=== PATIENT | male | born 1940 | race Caucasian/White ===

== ENCOUNTER 2017-07-14 19:15 | Inpatient (IN) | payer MEDICARE, OTHER ==
--- NOTE | 2017-07-14 19:35 | EDM.PDOC ---
ED HPI GENERAL MEDICAL PROBLEM - General Chief Complaint: Respiratory Problem Stated Complaint: UNK CHEST COLD Time Seen by Provider: 07/14/17 19:35 Source of Information: Reports: Patient - History of Present Illness INITIAL COMMENTS - FREE TEXT/NARRATIVE: HISTORY AND PHYSICAL: History of present illness: [Patient presents with cough fever chills over the last week some shortness of breath no chest pain headache dizziness or palpitation no bowel or urine symptoms ] Review of systems: As per history of present illness and below otherwise all systems reviewed and negative. Past medical history: As per history of present illness and as reviewed below otherwise noncontributory. Surgical history: As per history of present illness and as reviewed below otherwise noncontributory. Social history: No reported history of drug or alcohol abuse. Family history: As per history of present illness and as reviewed below otherwise noncontributory. Physical exam: HEENT: Atraumatic, normocephalic, pupils reactive, negative for conjunctival pallor or scleral icterus, mucous membranes moist, throat clear, neck supple, nontender, trachea midline. LunDecreased breath sounds at the bases, breath sounds equal bilaterally, chest nontender. Heart: S1S2, regular, negative for clicks, rubs, or JVD. Abdomen: Soft, nondistended, nontender. Negative for masses or hepatosplenomegaly. Negative for costovertebral tenderness. Pelvis: Stable nontender. Genitourinary: Deferred. Rectal: Deferred. Extremities: Atraumatic, negative for cords or calf pain. Neurovascular unremarkable. Neuro: Awake, alert, oriented. Cranial nerves II through XII unremarkable. Cerebellum unremarkable. Motor and sensory unremarkable throughout. Exam nonfocal. Diagnostics: [CBC CMP UA troponin EKG Chest 1 view] Therapeutics: [ normal saline 1 25 mL per hour Rocephin 1 g IV Azithromycin 500 mg IV ] Impression: [Pneumonia Fever] Leukocytosis Definitive disposition and diagnosis as appropriate pending reevaluation and review of above. chest area Pain Score (Numeric/FACES): 1 - Related Data Allergies Allergy/AdvReac Type Severity Reaction Status Date / Time No Known Allergies Allergy Verified 07/14/17 19:29 Home Meds: Home Meds . [No Known Home Meds] 07/14/17 [History] ED ROS GENERAL - Review of Systems Review Of Systems: ROS reveals no pertinent complaints other than HPI. ED EXAM, GENERAL - Physical Exam Exam: See Below Course - Vital Signs Last Recorded V/S: Last Vital Signs Temp 99.9 F 07/14/17 19:30 Pulse 78 07/14/17 19:30 Resp 20 07/14/17 19:30 BP 166/90 H 07/14/17 19:30 Pulse Ox 93 L 07/14/17 19:30 - Orders/Labs/Meds Orders: Active Orders 24 hr Category Date Time Status EKG Documentation Completion [RC] STAT Care 07/14/17 19:33 Active RT Aerosol Therapy [RC] ASDIRECTED Care 07/14/17 20:12 Active Chest 1V Frontal [CR] Stat Exams 07/14/17 19:33 Taken CULTURE BLOOD [BC] Stat Lab 07/14/17 19:46 Received CULTURE BLOOD [BC] Stat Lab 07/14/17 19:53 Received INFLUENZA A+B AG SCREEN [RM] Stat Lab 07/14/17 19:45 Ordered UA W/MICROSCOPIC [URIN] Stat Lab 07/14/17 19:33 Ordered Azithromycin [Zithromax] 500 mg Med 07/14/17 20:11 Active Sodium Chloride 0.9% [Normal Saline] 250 ml IV ONETIME Sodium Chloride 0.9% [Normal Saline] 1,000 ml Med 07/14/17 20:15 Active IV STAT Blood Culture x2 Reflex Set [OM.PC] Stat Oth 07/14/17 19:33 Ordered Medication Orders Azithromycin 500 mg/ Sodium (Chloride) 250 mls @ 250 mls/hr IV ONETIME ONE Stop: 07/14/17 21:10 Sodium Chloride (Normal Saline) 1,000 mls @ 125 mls/hr IV STAT [facility] Labs: Laboratory Tests 07/14/17 07/14/17 07/14/17 Range/Units 19:46 19:46 19:46 WBC 14.62 H (4.0-11.0) K/uL RBC 4.39 L (4.50-5.90) M/uL Hgb 13.7 (13.0-17.0) g/dL Hct 40.2 (38.0-50.0) % MCV 91.6 (80.0-98.0) fL MCH 31.2 (27.0-32.0) pg MCHC 34.1 (31.0-37.0) g/dL RDW Std Deviation 46.5 (28.0-62.0) fl RDW Coeff of [place] 14 (11.0-15.0) % Plt Count 231 (150-400) K/uL MPV 9.70 (7.40-12.00) fL Neut % (Auto) 78.5 (48.0-80.0) % Lymph % (Auto) 11.0 L (16.0-40.0) % [place] % (Auto) 9.4 (0.0-15.0) % Eos % (Auto) 0.9 (0.0-7.0) % Baso % (Auto) 0.2 (0.0-1.5) % Neut # (Auto) 11.5 H (1.4-5.7) K/uL Lymph # (Auto) 1.6 (0.6-2.4) K/uL [place] # (Auto) 1.4 H (0.0-0.8) K/uL Eos # (Auto) 0.1 (0.0-0.7) K/uL Baso # (Auto) 0.0 (0.0-0.1) K/uL Nucleated RBC % 0.0 /100WBC Nucleated RBCs # 0 K/uL Sodium 139 (136-148) mmol/L Potassium 3.9 (3.5-5.1) mmol/L Chloride 104 (98-107) mmol/L Carbon Dioxide 25.8 (21.0-32.0) mmol/L BUN 17 (7.0-18.0) mg/dL Creatinine 1.0 (0.8-1.3) mg/dL Est Cr Clr Drug Dosing 54.27 mL/min Estimated GFR (MDRD) > 60.0 ml/min Glucose 140 H (74-106) mg/dL Calcium 8.9 (8.5-10.1) mg/dL Total Bilirubin 0.2 (0.2-1.0) mg/dL AST 17 (15-37) IU/L ALT 29 (14-63) IU/L Alkaline Phosphatase 77 (46-116) U/L Troponin I < 0.050 (0.000-0.056) ng/mL B-Natriuretic Peptide 80 (<100) PG/ML Total Protein 7.7 (6.4-8.2) g/dL Albumin 3.1 L (3.4-5.0) g/dL Globulin 4.6 H (2.0-3.5) g/dL Albumin/Globulin Ratio 0.7 L (1.3-2.8) Meds: Medications Generic Name Dose Route Start Last Admin Trade Name Jose De Jesus PRN Reason Stop Dose Admin Azithromycin 500 mg/ Sodium 250 mls @ 250 mls/hr 07/14/17 20:11 Chloride IV 07/14/17 21:10 ONETIME ONE Sodium Chloride 1,000 mls @ 125 mls/hr 07/14/17 20:15 Normal Saline IV STAT LOYDA Discontinued Medications Generic Name Dose Route Start Last Admin Trade Name Freq PRN Reason Stop Dose Admin Albuterol/Ipratropium 3 ml 07/14/17 20:12 07/14/17 20:17 Duoneb 3.0-0.5 Mg/3 Ml NEB 07/14/17 20:13 3 ml ONETIME ONE Administration Ceftriaxone Sodium 1,000 mg/ 4 mls @ 4 mls/sec 07/14/17 20:11 Lidocaine HCl IM 07/14/17 20:12 ONETIME ONE Departure - Departure Time of Disposition: 20:32 Disposition: Admitted As Inpatient 68 Condition: Fair Clinical Impression: Pneumonia - Discharge Information Referrals: PCP,None [Primary Care Provider] - Forms: ED Department Discharge - My Orders Last 24 Hours: My Active Orders 07/14/17 19:33 EKG Documentation Completion [RC] STAT Chest 1V Frontal [CR] Stat UA W/MICROSCOPIC [URIN] Stat Blood Culture x2 Reflex Set [OM.PC] Stat 07/14/17 19:45 INFLUENZA A+B AG SCREEN [RM] Stat 07/14/17 19:46 CULTURE BLOOD [BC] Stat 07/14/17 19:53 CULTURE BLOOD [BC] Stat 07/14/17 20:11 Azithromycin [Zithromax] 500 mg Sodium Chloride 0.9% [Normal Saline] 250 ml IV ONETIME 07/14/17 20:12 RT Aerosol Therapy [RC] ASDIRECTED 07/14/17 20:15 Sodium Chloride 0.9% [Normal Saline] 1,000 ml IV STAT - Assessment/Plan Last 24 Hours: My Active Orders 07/14/17 19:33 EKG Documentation Completion [RC] STAT Chest 1V Frontal [CR] Stat UA W/MICROSCOPIC [URIN] Stat Blood Culture x2 Reflex Set [OM.PC] Stat 07/14/17 19:45 INFLUENZA A+B AG SCREEN [RM] Stat 07/14/17 19:46 CULTURE BLOOD [BC] Stat 07/14/17 19:53 CULTURE BLOOD [BC] Stat 07/14/17 20:11 Azithromycin [Zithromax] 500 mg Sodium Chloride 0.9% [Normal Saline] 250 ml IV ONETIME 07/14/17 20:12 RT Aerosol Therapy [RC] ASDIRECTED 07/14/17 20:15 Sodium Chloride 0.9% [Normal Saline] 1,000 ml IV STAT
[2017-07-14] MEDS ORDERED: cefTRIAXone 1,000 MG in Lidocaine 1% 4 ML IM ONE (20:11)
[2017-07-14] MEDS ORDERED: Azithromycin 500 MG in Sodium Chloride 0.9% 250 ML IV ONE (20:11)
[2017-07-14] MEDS ORDERED: Albuterol/Ipratropium 3.0-0.5 MG/3 ML Neb Soln NEB ONE (20:12)
[2017-07-14 20:18] LABS: CHLORIDE,CL 104 mmol/L (98-107); SODIUM,NA 139 mmol/L (136-148)
[2017-07-14] MEDS ORDERED: cefTRIAXone 1 GM in Premix Bag 1 BAG IV ONE (20:42)
[2017-07-14] MEDS: Sodium Chloride 0.9% 1,000 ML IV SCH (21:35)
[2017-07-14] MEDS ORDERED: Morphine 10 MG/ML Syringe IVPUSH PRN (22:14)
[2017-07-14] MEDS ORDERED: Albuterol/Ipratropium 3.0-0.5 MG/3 ML Neb Soln NEB PRN (22:14)
[2017-07-14] MEDS ORDERED: Ondansetron 4 MG/2 ML SDV IVPUSH PRN (22:14)
[2017-07-14] MEDS ORDERED: Azithromycin 250 MG Tab PO ONE (22:26)
[2017-07-14] MEDS ORDERED: cefTRIAXone 1,000 MG in Sodium Chloride 0.9% 50 ML IV SCH (22:30)
[2017-07-14] MEDS: Acetaminophen 325 MG Tab PO PRN (23:14)
[2017-07-15] MEDS: Acetaminophen 325 MG Tab PO PRN (04:48)
[2017-07-15] MEDS ORDERED: Azithromycin 500 MG in Sodium Chloride 0.9% 250 ML IV SCH ×5 (05:00→21:30)
[2017-07-15 06:25] LABS: CHLORIDE,CL 105 mmol/L (98-107); SODIUM,NA 140 mmol/L (136-148)
[2017-07-15] MEDS: Sodium Chloride 0.9% 1,000 ML IV SCH (07:18)
[2017-07-15] MEDS ORDERED: cefTRIAXone 1,000 MG in Sodium Chloride 0.9% 50 ML IV SCH ×5 (09:00→23:00)
[2017-07-15] MEDS ORDERED: Acetaminophen/HYDROcodone 325-10 MG Tab PO PRN (10:29)
[2017-07-15] MEDS ORDERED: Albuterol/Ipratropium 3.0-0.5 MG/3 ML Neb Soln NEB PRN (10:31)
[2017-07-15] MEDS: Fluticasone/Salmeterol 250-50 MCG Inhalation Powder 14/Diskus INH SCH ×2 (10:57→20:27)
[2017-07-15] MEDS: methylPREDNISolone Sodium Succinate 40 MG/1 ML SDV IVPUSH SCH ×3 (11:19→21:51)
[2017-07-15] MEDS: guaiFENesin/Dextromethorphan 100-10 MG/5 ML Soln 10 ML Cup PO PRN ×2 (11:27→16:37)
[2017-07-15] MEDS ORDERED: Magnesium Sulfate/Water 2 GM in Premix Bag 1 BAG IV ONE (12:40)
--- NOTE | 2017-07-15 13:56 | PCM.HP ---
H&P History of Present Illness - General Date of Service: 07/15/17 Admit Problem/Dx: Admission Diagnosis/Problem Admission Diagnosis/Problem Pneumonia Source of Information: Patient History Limitations: Reports: No Limitations - History of Present Illness Initial Comments - Free Text/Narative: Patient 76 y old man from [place] who is here at work presented to hospital due to severe cough productive of green phlegm for the past 2 weeks associated with generalized weakness . Patient denies chills or fever , but in Er he was found to have a temperature of 101F. He reports wheezing and his chest is sore with coughing that lasted the past 2 weeks . Onset of Symptoms: Reports: Today Duration of Symptoms: Reports: Week(s): chest area Pain Score (Numeric/FACES): 0 - Related Data Allergies/Adverse Reactions: Allergies Allergy/AdvReac Type Severity Reaction Status Date / Time No Known Allergies Allergy Verified 07/14/17 19:29 Home Medications: Home Meds . [No Known Home Meds] 07/14/17 [History] Past Medical History HEENT History: Reports: None Cardiovascular History: Reports: Hypertension Respiratory History: Reports: None Gastrointestinal History: Reports: None Genitourinary History: Reports: None Musculoskeletal History: Reports: None Neurological History: Reports: None Psychiatric History: Reports: None Endocrine/Metabolic History: Reports: None Hematologic History: Reports: None Immunologic History: Reports: None Oncologic (Cancer) History: Reports: None Dermatologic History: Reports: None - Infectious Disease History Infectious Disease History: Reports: Chicken Pox, Measles, Mumps - Past Surgical History Head Surgeries/Procedures: Reports: None GI Surgical History: Reports: Cholecystectomy, Colonoscopy Social & Family History - Family History Family Medical History: Noncontributory - Tobacco Use Smoking Status *Q: Current Some Day Smoker Years of Tobacco use: 55 Packs/Tins Daily: 0.3 Used Tobacco, but Quit: Yes Month/Year Tobacco Last Used: January 2017 Tobacco Use Comment: stop a year ago - Caffeine Use Caffeine Use: Reports: Coffee - Recreational Drug Use Recreational Drug Use: No H&P Review of Systems - Review of Systems: Review Of Systems: See Below General: Reports: Fever, Weakness HEENT: Reports: No Symptoms Pulmonary: Reports: Shortness of Breath, Wheezing, Cough, Sputum Cardiovascular: Reports: No Symptoms Gastrointestinal: Reports: No Symptoms Genitourinary: Reports: No Symptoms Musculoskeletal: Reports: No Symptoms Skin: Reports: Other (psoriasis) Psychiatric: Reports: No Symptoms Neurological: Reports: No Symptoms Hematologic/Lymphatic: Reports: No Symptoms Immunologic: Reports: No Symptoms Exam - Exam Exam: See Below - Vital Signs Vital Signs: Last Vital Signs Temp 98.4 F 07/15/17 12:00 Pulse 78 07/15/17 12:00 Resp 18 07/15/17 12:00 BP 144/74 H 07/15/17 12:00 Pulse Ox 94 L 07/15/17 12:00 Weight: 236 lb 15.951 oz - Exam General: Alert, Oriented HEENT: Conjunctiva Clear Neck: Supple, Trachea Midline Lungs: Decreased Breath Sounds, Wheezing, Other (sob) Cardiovascular: Regular Rate, Regular Rhythm, Normal S1, Normal S2 GI/Abdominal Exam: Normal Bowel Sounds, Soft, Non-Tender, No Organomegaly Extremities: Normal Inspection Skin: Other (psoriatic plaque b/l le) Neurological: Cranial Nerves Intact Neuro Extensive - Mental Status: Alert, Oriented x3 Psychiatric: Alert, Normal Affect, Normal Mood - Patient Data Lab Results Last 24 hrs: Laboratory Results - last 24 hr 07/14/17 07/14/17 07/14/17 Range/Units 19:46 19:46 19:46 WBC 14.62 H (4.0-11.0) K/uL RBC 4.39 L (4.50-5.90) M/uL Hgb 13.7 (13.0-17.0) g/dL Hct 40.2 (38.0-50.0) % MCV 91.6 (80.0-98.0) fL MCH 31.2 (27.0-32.0) pg MCHC 34.1 (31.0-37.0) g/dL RDW Std Deviation 46.5 (28.0-62.0) fl RDW Coeff of [place] 14 (11.0-15.0) % Plt Count 231 (150-400) K/uL MPV 9.70 (7.40-12.00) fL Neut % (Auto) 78.5 (48.0-80.0) % Lymph % (Auto) 11.0 L (16.0-40.0) % [place] % (Auto) 9.4 (0.0-15.0) % Eos % (Auto) 0.9 (0.0-7.0) % Baso % (Auto) 0.2 (0.0-1.5) % Neut # (Auto) 11.5 H (1.4-5.7) K/uL Lymph # (Auto) 1.6 (0.6-2.4) K/uL [place] # (Auto) 1.4 H (0.0-0.8) K/uL Eos # (Auto) 0.1 (0.0-0.7) K/uL Baso # (Auto) 0.0 (0.0-0.1) K/uL Nucleated RBC % 0.0 /100WBC Nucleated RBCs # 0 K/uL Sodium 139 (136-148) mmol/L Potassium 3.9 (3.5-5.1) mmol/L Chloride 104 (98-107) mmol/L Carbon Dioxide 25.8 (21.0-32.0) mmol/L BUN 17 (7.0-18.0) mg/dL Creatinine 1.0 (0.8-1.3) mg/dL Est Cr Clr Drug Dosing 54.27 mL/min Estimated GFR (MDRD) > 60.0 ml/min Glucose 140 H (74-106) mg/dL Calcium 8.9 (8.5-10.1) mg/dL Total Bilirubin 0.2 (0.2-1.0) mg/dL AST 17 (15-37) IU/L ALT 29 (14-63) IU/L Alkaline Phosphatase 77 (46-116) U/L Troponin I < 0.050 (0.000-0.056) ng/mL B-Natriuretic Peptide 80 (<100) PG/ML Total Protein 7.7 (6.4-8.2) g/dL Albumin 3.1 L (3.4-5.0) g/dL Globulin 4.6 H (2.0-3.5) g/dL Albumin/Globulin Ratio 0.7 L (1.3-2.8) Urine Color Urine Appearance Urine pH (5.0-8.0) Ur Specific [place] (1.001-1.035) Urine Protein (NEGATIVE) mg/dL Urine Glucose (UA) (NEGATIVE) mg/dL Urine Ketones (NEGATIVE) mg/dL Urine Occult Blood (NEGATIVE) Urine Nitrite (NEGATIVE) Urine Bilirubin (NEGATIVE) Urine Urobilinogen (<2.0) EU/dL Ur Leukocyte Esterase (NEGATIVE) Urine RBC (0-2/HPF) Urine WBC (0-5/HPF) Ur Epithelial Cells (NONE-FEW) Urine Bacteria (NEGATIVE) 07/14/17 07/15/17 07/15/17 Range/Units 23:01 05:30 05:30 WBC 13.93 H (4.0-11.0) K/uL RBC 4.15 L (4.50-5.90) M/uL Hgb 12.8 L (13.0-17.0) g/dL Hct 37.9 L (38.0-50.0) % MCV 91.3 (80.0-98.0) fL MCH 30.8 (27.0-32.0) pg MCHC 33.8 (31.0-37.0) g/dL RDW Std Deviation 45.5 (28.0-62.0) fl RDW Coeff of [place] 14 (11.0-15.0) % Plt Count 202 (150-400) K/uL MPV 9.90 (7.40-12.00) fL Neut % (Auto) 74.4 (48.0-80.0) % Lymph % (Auto) 13.8 L (16.0-40.0) % [place] % (Auto) 10.4 (0.0-15.0) % Eos % (Auto) 1.1 (0.0-7.0) % Baso % (Auto) 0.3 (0.0-1.5) % Neut # (Auto) 10.4 H (1.4-5.7) K/uL Lymph # (Auto) 1.9 (0.6-2.4) K/uL [place] # (Auto) 1.5 H (0.0-0.8) K/uL Eos # (Auto) 0.2 (0.0-0.7) K/uL Baso # (Auto) 0.0 (0.0-0.1) K/uL Nucleated RBC % 0.0 /100WBC Nucleated RBCs # 0 K/uL Sodium 140 (136-148) mmol/L Potassium 3.9 (3.5-5.1) mmol/L Chloride 105 (98-107) mmol/L Carbon Dioxide 25.0 (21.0-32.0) mmol/L BUN 14 (7.0-18.0) mg/dL Creatinine 1.1 (0.8-1.3) mg/dL Est Cr Clr Drug Dosing 62.75 mL/min Estimated GFR (MDRD) > 60.0 ml/min Glucose 125 H (74-106) mg/dL Calcium 8.5 (8.5-10.1) mg/dL Total Bilirubin (0.2-1.0) mg/dL AST (15-37) IU/L ALT (14-63) IU/L Alkaline Phosphatase (46-116) U/L Troponin I (0.000-0.056) ng/mL B-Natriuretic Peptide (<100) PG/ML Total Protein (6.4-8.2) g/dL Albumin (3.4-5.0) g/dL Globulin (2.0-3.5) g/dL Albumin/Globulin Ratio (1.3-2.8) Urine Color YELLOW Urine Appearance CLEAR Urine pH 7.0 (5.0-8.0) Ur Specific [place] 1.020 (1.001-1.035) Urine Protein NEGATIVE (NEGATIVE) mg/dL Urine Glucose (UA) NEGATIVE (NEGATIVE) mg/dL Urine Ketones NEGATIVE (NEGATIVE) mg/dL Urine Occult Blood NEGATIVE (NEGATIVE) Urine Nitrite NEGATIVE (NEGATIVE) Urine Bilirubin NEGATIVE (NEGATIVE) Urine Urobilinogen 4.0 H (<2.0) EU/dL Ur Leukocyte Esterase NEGATIVE (NEGATIVE) Urine RBC 0-1 (0-2/HPF) Urine WBC 0-1 (0-5/HPF) Ur Epithelial Cells RARE (NONE-FEW) Urine Bacteria FEW (NEGATIVE) Result Diagrams: 07/15/17 05:30 07/15/17 05:30 Michel Results Last 24 hrs: Microbiology 07/14/17 19:45 Influenza Type A Antigen Screen - Final Nasopharyngeal Swab NEGATIVE INFLUENZA A VIRUS AG Influenza Type B Antigen Screen - Final NEGATIVE INFLUENZA B VIRUS AG EKG INTERPRETATION EKG Date: 07/14/17 Rhythm: NSR Rate (Beats/Min): 73 [place]: Normal P-Wave: Present QRS: Normal ST-T: Normal QT: Normal - Problem List (1) CAP (community acquired pneumonia) SNOMED Code(s): 998714527 ICD Code: J18.9 - PNEUMONIA, UNSPECIFIED ORGANISM Status: Acute Current Visit: Yes Qualifiers: Laterality: left (2) COPD exacerbation SNOMED Code(s): 536664601 ICD Code: J44.1 - CHRONIC OBSTRUCTIVE PULMONARY DISEASE W (ACUTE) EXACERBATION Status: Acute Current Visit: Yes (3) Psoriasis SNOMED Code(s): 6443156 ICD Code: L40.9 - PSORIASIS, UNSPECIFIED Status: Acute Current Visit: Yes Problem List Initiated/Reviewed/Updated: Yes Orders Last 24hrs: Active Orders 24 hr Category Date Time Status Admission Status [Patient Status] [ADT] Stat ADT 07/14/17 20:32 Active Patient Status [ADT] Routine ADT 07/14/17 22:14 Active Cardiac Monitoring Discontinue [RC] Click to Edit Care 07/15/17 00:00 Active Cardiac Monitoring [RC] CONTINUOUS Care 07/14/17 22:15 Active Oxygen Therapy [RC] PRN Care 07/14/17 22:14 Active Pulse Oximetry [RC] PRN Care 07/14/17 22:15 Active RT Aerosol Therapy [RC] ASDIRECTED Care 07/14/17 22:24 Active RT Aerosol Therapy [RC] ASDIRECTED Care 07/15/17 10:31 Active RT Post Treatment Assessment [RC] Click to Edit Care 07/15/17 10:31 Active RT Pre-Treatment Assessment [RC] Click to Edit Care 07/15/17 10:31 Active Up ad Jolly [RC] ASDIRECTED Care 07/14/17 22:14 Active VTE/DVT Education [RC] PER UNIT ROUTINE Care 07/14/17 22:14 Active Vital Signs [RC] Q4H Care 07/14/17 22:14 Active Chest 1V Frontal [CR] Stat Exams 07/14/17 19:33 Taken BASIC METABOLIC PANEL,BMP [CHEM] AM Lab 07/16/17 05:11 Ordered BASIC METABOLIC PANEL,BMP [CHEM] AM Lab 07/17/17 05:11 Ordered CBC WITH AUTO DIFF [HEME] AM Lab 07/16/17 05:11 Ordered CBC WITH AUTO DIFF [HEME] AM Lab 07/17/17 05:11 Ordered CULTURE BLOOD [BC] Stat Lab 07/14/17 19:46 Received CULTURE BLOOD [BC] Stat Lab 07/14/17 19:53 Received INFLUENZA A+B AG SCREEN [RM] Stat Lab 07/14/17 19:45 Ordered UA W/MICROSCOPIC [URIN] Stat Lab 07/14/17 23:01 Ordered Acetaminophen [Tylenol] Med 07/14/17 22:14 Active 650 mg PO Q4H PRN Acetaminophen/HYDROcodone [[place] 325-10 MG] Med 07/15/17 10:29 Active 2 tab PO Q6H PRN Albuterol/Ipratropium [DuoNeb 3.0-0.5 MG/3 ML] Med 07/14/17 22:14 Active 3 ml NEB Q4HRRT PRN Albuterol/Ipratropium [DuoNeb 3.0-0.5 MG/3 ML] Med 07/15/17 10:31 Active 3 ml NEB Q4HRRT PRN Azithromycin [Zithromax] 500 mg Med 07/15/17 21:30 Active Sodium Chloride 0.9% [Normal Saline] 250 ml IV Q24H Dextromethorphan/guaiFENesin [Robitussin DM] Med 07/15/17 10:29 Active 10 ml PO Q4H PRN Fluticasone/Salmeterol [Advair Diskus 250-50] Med 07/15/17 10:45 Active 1 puff INH BID Morphine Med 07/14/17 22:14 Active 2 mg IVPUSH Q2H PRN Ondansetron [Zofran] Med 07/14/17 22:14 Active 4 mg IVPUSH Q4H PRN Sodium Chloride 0.9% [Normal Saline] 1,000 ml Med 07/14/17 20:15 Active IV STAT cefTRIAXone [Rocephin in Dextrose,Iso-Osm 1 GM/50 ML] 1 Med 07/15/17 21:00 Active gm Premix Bag 1 bag IV Q24H methylPREDNISolone Sod Succ [Solu-MEDROL] Med 07/15/17 10:30 Active 40 mg IVPUSH Q6H Blood Culture x2 Reflex Set [OM.PC] Stat Oth 07/14/17 19:33 Ordered Sequential Compression Device [OM.PC] Per Unit Routine Oth 07/14/17 22:15 Ordered Resuscitation Status Routine Resus Stat 07/14/17 22:14 Ordered Medication Orders Acetaminophen (Tylenol) 650 mg PO Q4H PRN PRN Reason: Pain (Mild 1-3)/fever Last Admin: 07/15/17 04:48 Dose: 650 mg Admin: 07/14/17 23:14 Dose: 650 mg Hydrocodone Bitart/Acetaminophen ([place] 325-10 Mg) 2 tab PO Q6H PRN PRN Reason: Pain Albuterol/Ipratropium (Duoneb 3.0-0.5 Mg/3 Ml) 3 ml NEB Q4HRRT PRN PRN Reason: Shortness Of Breath/wheezing Albuterol/Ipratropium (Duoneb 3.0-0.5 Mg/3 Ml) 3 ml NEB Q4HRRT PRN PRN Reason: sob Guaifenesin/Dextromethorphan (Robitussin Dm) 10 ml PO Q4H PRN PRN Reason: Cough Last Admin: 07/15/17 11:27 Dose: 10 ml Sodium Chloride (Normal Saline) 1,000 mls @ 125 mls/hr IV STAT LOYDA Last Admin: 07/15/17 07:18 Dose: 125 mls/hr Infusion: 07/15/17 05:35 Dose: 125 mls/hr Admin: 07/14/17 21:35 Dose: 125 mls/hr Azithromycin 500 mg/ Sodium (Chloride) 250 mls @ 250 mls/hr IV Q24H LOYDA Ceftriaxone Sodium/Dextrose 1 (gm/ Premix) 50 mls @ 100 mls/hr IV Q24H [facility]YDA Methylprednisolone Sodium Succinate (Solu-Medrol) 40 mg IVPUSH Q6H [facility] Last Admin: 07/15/17 11:19 Dose: 40 mg Morphine Sulfate (Morphine) 2 mg IVPUSH Q2H PRN PRN Reason: Pain (severe 7-10) Stop: 07/15/17 22:16 Ondansetron HCl (Zofran) 4 mg IVPUSH Q4H PRN PRN Reason: Nausea Fluticasone/Salmeterol (Advair Diskus 250-50) 1 puff INH BID LOYDA Last Admin: 07/15/17 10:57 Dose: 1 diskus CXr - left lung infiltrate Assessment/Plan Comment:: Assessment and plan 1)CAP- will admit patient to [facility] , will continue patient on Ceftriaxone and azithromycin, iv , f/up BC , sputum culture and gram stain, iv fluids Robitussin 10 cc po q 6 h prn for cough 2)Copd exac:duoneb neb treatment , advair 250/50 1 puff inh q 12 h , solumedrol 40 mg iv q 6 h , f/up patient clinically 3)Psoriasis : patient will be getting solumedrol iv 4)dvt prof: heparin sq
[2017-07-15] MEDS: cefTRIAXone 1 GM in Premix Bag 1 BAG IV SCH ×2 (20:44→21:08)
[2017-07-16] MEDS: methylPREDNISolone Sodium Succinate 40 MG/1 ML SDV IVPUSH SCH (04:02)
[2017-07-16] MEDS: Fluticasone/Salmeterol 250-50 MCG Inhalation Powder 14/Diskus INH SCH (09:07)
--- NOTE | 2017-07-16 09:50 | PCM.DCSUM1 ---
Discharge Summary - Hospital Course Brief History: This 76 year old male with no significant pmh presented to the ED with complaints of severe cough productive of green phlegm for the past 2 weeks associated with generalized weakness. Patient denies chills or fever, but in ED he was found to have a temperature of 101F. He reports wheezing and his chest is sore with coughing that lasted the past 2 weeks. He is a past smoker, who currently has quit, but he reports he stops and starts. In the ED leukocytosis noted at 14,620. BMP WNL. CXR read as negative, but it appears to have LLL infiltrate. He was treated with Rocephin and Azithromycin. He will be admitted with CAP. - Discharge Data Discharge Date: 07/16/17 Discharge Disposition: Home, Self-Care 01 Condition: Good - Patient Instructions Diet: Regular Diet as Tolerated Activity: No Strenuous Activities, Rest and Relax Today Showering/Bathing: May Shower Notify Provider of: Fever, Increased Pain, Swelling and Redness, Drainage, Nausea and/or Vomiting - Discharge Plan Prescriptions/Med Rec: Albuterol [Ventolin HFA] 1 - 2 inh IH Q4H PRN #1 inhaler PRN Reason: shortnessofbreath/wheezing Azithromycin 500 mg PO DAILY #5 tablet Benzonatate [Tessalon Perle] 100 mg PO TID PRN #30 capsule PRN Reason: Cough Prednisone [IJD: predniSONE] 40 mg PO WITHBREAKFAST #6 tab Home Medications: Home Meds Albuterol [Ventolin HFA] 1 - 2 inh IH Q4H PRN #1 inhaler 07/16/17 [Rx] Azithromycin 500 mg PO DAILY #5 tablet 07/16/17 [Rx] Benzonatate [Tessalon Perle] 100 mg PO TID PRN #30 capsule 07/16/17 [Rx] Fluticasone/Salmeterol [Advair 250-50] 1 puff INH BID diskus 07/16/17 [Rx] Prednisone [IJD: predniSONE] 40 mg PO WITHBREAKFAST #6 tab 07/16/17 [Rx] Patient Handouts: Community-Acquired Pneumonia, Adult, [id number] Referrals: Leighton Canales MD [Resident] - 07/30/17 2:30 pm - Discharge Summary/Plan Comment DC Time >30 min.: No Discharge Summary/Plan Comment: Discharge Diagnoses: CAP Probable COPD Bronchitis Vladimir was admitted and treated with Rocephin and Azithromycin for CAP. Leukocytosis improved, he has been afebrile and is feeling better today. BC have been negative. Influenza negative. he is no longer having productive cough today and asking to be discharged home. He is no longer wheezing. On admission he was noted to have significant wheezing and was started on IV SOlumedrol 40 mg IV Q6hr. He is no longer wheezing, no hypoxia noted and no dyspnea. Leukocytosis did increase, but this like likely secondary to IV steroid administration. He will be sent home with Azithromycin 500 mg for 5 more days, Tessalon Perles TID PRN. I will also continue short 5 day course of Prednisone 40 mg daily and Advair for the next two weeks. He will have follow up here in [place] in 1 week to insure he is improving. He was encouraged to return to ED or clinic if he has any concerns or condition worsens with fever, chest pain or shortness of breath. I also encouraged follow up with PCP in [place] for possible PFT to evaluate for COPD. - General Info Date of Service: 07/16/17 Admission Dx/Problem (Free Text: Admission Diagnosis/Problem Admission Diagnosis/Problem Pneumonia Subjective Update: Feeling better today, continues to have some cough, but no longer productive. NO chest pain or SOB. Asking if he is able to go home today. Functional Status: Reports: Pain Controlled, Tolerating Diet, Ambulating, Urinating - Review of Systems General: Reports: No Symptoms. Denies: Fever, Weakness, Fatigue, Malaise HEENT: Reports: No Symptoms. Denies: Headaches, Sore Throat, Visual Changes Pulmonary: Reports: Cough. Denies: Shortness of Breath, Sputum, Hemoptysis, Wheezing Cardiovascular: Reports: No Symptoms. Denies: Chest Pain Gastrointestinal: Reports: No Symptoms. Denies: Abdominal Pain, Nausea, Vomiting Genitourinary: Reports: No Symptoms. Denies: Dysuria, Frequency, Burning Musculoskeletal: Reports: No Symptoms Skin: Reports: No Symptoms Neurological: Reports: No Symptoms Psychiatric: Reports: No Symptoms - Patient Data Vitals - Most Recent: Last Vital Signs Temp 98.2 F 07/16/17 08:29 Pulse 64 07/16/17 08:29 Resp 17 07/16/17 08:29 BP 129/76 07/16/17 08:29 Pulse Ox 92 L 07/16/17 08:29 Weight - Most Recent: 107.5 kg I&O - Last 24 hours: Intake & Output 07/15/17 07/16/17 07/16/17 22:59 06:59 14:59 Intake Total 2432 620 Output Total 2265 1000 Balance 167 -380 Lab Results - Last 24 hrs: Laboratory Results - last 24 hr 07/16/17 07/16/17 Range/Units 05:19 05:19 WBC 18.73 H (4.0-11.0) K/uL RBC 4.35 L (4.50-5.90) M/uL Hgb 13.5 (13.0-17.0) g/dL Hct 40.3 (38.0-50.0) % MCV 92.6 (80.0-98.0) fL MCH 31.0 (27.0-32.0) pg MCHC 33.5 (31.0-37.0) g/dL RDW Std Deviation 44.0 (28.0-62.0) fl RDW Coeff of [place]varado 13 (11.0-15.0) % Plt Count 235 (150-400) K/uL MPV 10.50 (7.40-12.00) fL Add Manual Diff YES Neutrophils % (Manual) 88 H (48.0-80.0) % Band Neutrophils % 2 % Lymphocytes % (Manual) 10 L (16.0-40.0) % Absolute Seg Neuts 16.5 H (1.4-5.7) Band Neutrophils # 0.4 Lymphocytes # (Manual) 1.9 (0.6-2.4) Sodium 138 (136-148) mmol/L Potassium 4.7 (3.5-5.1) mmol/L Chloride 102 (98-107) mmol/L Carbon Dioxide 28.3 (21.0-32.0) mmol/L BUN 15 (7.0-18.0) mg/dL Creatinine 1.2 (0.8-1.3) mg/dL Est Cr Clr Drug Dosing 57.52 mL/min Estimated GFR (MDRD) 59.2 ml/min Glucose 251 H (74-106) mg/dL Calcium 9.2 (8.5-10.1) mg/dL NEVAEH Results - Last 24 hrs: Microbiology 07/14/17 19:53 Aerobic Blood Culture - Preliminary Blood - Venous - Lab Draw NO GROWTH AFTER 1 DAY Anaerobic Blood Culture - Preliminary NO GROWTH AFTER 1 DAY 07/14/17 19:46 Aerobic Blood Culture - Preliminary Blood - Venous NO GROWTH AFTER 1 DAY Anaerobic Blood Culture - Preliminary NO GROWTH AFTER 1 DAY Med Orders - Current: Current Medications Acetaminophen (Tylenol) 650 mg PO Q4H PRN PRN Reason: Pain (Mild 1-3)/fever Last Admin: 07/15/17 04:48 Dose: 650 mg Hydrocodone Bitart/Acetaminophen ([place] 325-10 Mg) 2 tab PO Q6H PRN PRN Reason: Pain Albuterol/Ipratropium (Duoneb 3.0-0.5 Mg/3 Ml) 3 ml NEB Q4HRRT PRN PRN Reason: sob Guaifenesin/Dextromethorphan (Robitussin Dm) 10 ml PO Q4H PRN PRN Reason: Cough Last Admin: 07/15/17 16:37 Dose: 10 ml Azithromycin 500 mg/ Sodium (Chloride) 250 mls @ 250 mls/hr IV Q24H [facility] Last Admin: 07/15/17 21:57 Dose: 250 mls/hr Ceftriaxone Sodium/Dextrose 1 (gm/ Premix) 50 mls @ 100 mls/hr IV Q24H [facility] Last Admin: 07/15/17 21:08 Dose: Not Given Methylprednisolone Sodium Succinate (Solu-Medrol) 40 mg IVPUSH Q12H [facility] Ondansetron HCl (Zofran) 4 mg IVPUSH Q4H PRN PRN Reason: Nausea Fluticasone/Salmeterol (Advair Diskus 250-50) 1 puff INH BID [facility] Last Admin: 07/16/17 09:07 Dose: 1 diskus Discontinued Medications Albuterol/Ipratropium (Duoneb 3.0-0.5 Mg/3 Ml) 3 ml NEB ONETIME ONE Stop: 07/14/17 20:13 Last Admin: 07/14/17 20:17 Dose: 3 ml Albuterol/Ipratropium (Duoneb 3.0-0.5 Mg/3 Ml) 3 ml NEB Q4HRRT PRN PRN Reason: Shortness Of Breath/wheezing Azithromycin (Zithromax) 500 mg PO Q24H ONE Stop: 07/14/17 22:27 Last Admin: 07/14/17 23:08 Dose: Not Given Azithromycin 500 mg/ Sodium (Chloride) 250 mls @ 250 mls/hr IV ONETIME ONE Stop: 07/14/17 21:10 Last Admin: 07/14/17 21:38 Dose: 250 mls/hr Ceftriaxone Sodium 1,000 mg/ (Lidocaine HCl) 4 mls @ 4 mls/sec IM ONETIME ONE Stop: 07/14/17 20:12 Last Admin: 07/14/17 23:08 Dose: Not Given Sodium Chloride (Normal Saline) 1,000 mls @ 125 mls/hr IV STAT LOYDA Last Admin: 07/15/17 07:18 Dose: 125 mls/hr Ceftriaxone Sodium/Dextrose 1 (gm/ Premix) 50 mls @ 100 mls/hr IV ONETIME ONE Stop: 07/14/17 21:11 Last Admin: 07/14/17 23:15 Dose: 100 mls/hr Ceftriaxone Sodium 1,000 mg/ (Sodium Chloride) 50 mls @ 200 mls/hr IV Q24H [facility] Azithromycin 500 mg/ Sodium (Chloride) 250 mls @ 250 mls/hr IV Q24H [facility] Last Admin: 07/15/17 06:21 Dose: Not Given Ceftriaxone Sodium 1,000 mg/ (Sodium Chloride) 50 mls @ 200 mls/hr IV Q24H [facility] Azithromycin 500 mg/ Sodium (Chloride) 250 mls @ 250 mls/hr IV Q24H [facility] Ceftriaxone Sodium 1,000 mg/ (Sodium Chloride) 50 mls @ 200 mls/hr IV Q24H [facility] Ceftriaxone Sodium 1,000 mg/ (Sodium Chloride) 50 mls @ 200 mls/hr IV Q24H [facility] Magnesium Sulfate 2 gm/ Premix 50 mls @ 50 mls/hr IV ONETIME ONE Stop: 07/15/17 13:39 Last Admin: 07/15/17 13:51 Dose: Not Given Methylprednisolone Sodium Succinate (Solu-Medrol) 40 mg IVPUSH Q6H [facility] Last Admin: 07/16/17 04:02 Dose: 40 mg Morphine Sulfate (Morphine) 2 mg IVPUSH Q2H PRN PRN Reason: Pain (severe 7-10) Stop: 07/15/17 22:16 - Exam Quality Assessment: Reports: DVT Prophylaxis. Denies: Supplemental Oxygen General: Reports: Alert, Oriented, Cooperative, No Acute Distress Neck: Reports: Supple Lungs: Reports: Normal Respiratory Effort, Rhonchi (clears with coughing) Cardiovascular: Reports: Regular Rate, Regular Rhythm GI/Abdominal Exam: Normal Bowel Sounds, Soft, Non-Tender, No Organomegaly, No Distention, No Abnormal Bruit, No Mass, Pelvis Stable Rectal (Males) Exam: Normal Exam, Normal Rectal Tone, Prostate Normal Extremities: Normal Inspection, Normal Range of Motion, Non-Tender, No Pedal Edema, Normal Capillary Refill Wound/Incisions: Reports: Healing Well Neurological: Reports: No New Focal Deficit Psy/Mental Status: Reports: Alert, Normal Affect, Normal Mood
--- NOTE | 2017-07-16 13:11 | CR ---
EXAM DATE: 07/14/17 PATIENT'S AGE: 76 Patient: RAMU BHAGAT Facility: [place], [place] Site . Site : [id number] Study: XRay Chest [id number]/21/2018 8:03:55 PM Ordering Physician: Doctor Trotter Final Report: INDICATION: Fever. COMPARISON: None. FINDINGS: A portable AP upright view of the chest was obtained. The cardiac silhouette and pulmonary vasculature are within normal limits. The lungs are clear bilaterally. IMPRESSION: No evidence of acute pulmonary disease. Dictated by Juan Carlos Hill MD @ 07/14/2017 8:24:25 PM Dictated by: Juan Carlos Hill MD @ 07/14/2017 20:24:36 (Electronic Signature) Report Signed by Proxy. [facility]
[2017-07-16] MEDS ORDERED: methylPREDNISolone Sodium Succinate 40 MG/1 ML SDV IVPUSH SCH (16:00)
== END 2017-07-16 10:30 | disposition home or self-care (01) | DRG 190 ==
LOC: MW.ED 19:15 → MW.MS 20:51
PROVIDERS: ADMIT Internal Medicine; ATTEND Internal Medicine
DX: J44.0 Chronic obstructive pulmonary disease with (acute) lower respiratory infection (principal); J18.9 Pneumonia, unspecified organism; J44.1 Chronic obstructive pulmonary disease with (acute) exacerbation; L40.9 Psoriasis, unspecified; I10 Essential (primary) hypertension; Z87.891 Personal history of nicotine dependence
CPT/HCPCS: 36415; 71045; 71045-26; 80048; 80053; 81001; 83880; 84484; 85025; 87040; 87804; 93005; 94640; 96374; 99285-25; A9270-GY; J0456; J0696; J2920; J7040; J7050